=== PATIENT | female | born 1960 | race Caucasian/White ===

== ENCOUNTER 2024-08-09 13:26 | Outpatient (CLI) | payer MEDICARE, BC, SELFPAY ==
--- NOTE | 2024-08-09 13:30 | PE_ITS ---
[facility] [address] [facility] [address] Phone:?[phone] Fax:?[phone] Referring Physician Information: Onelia Guardado M.D. [address] [facility] [address] Phone:?[phone] Fax:?[phone] Patient:Tracy Delgado D.O.B:?1960 Sex:?Female Phone:?[phone] [facility] MRN:?[id number] Exam Date:?08/09/2024 EXAM: PET/CT SCAN MID-ORBITS TO PROXIMAL THIGHS CLINICAL INFORMATION: Right sided lung carcinoma; assess treatment response. COMPARISON:?None. TECHNICAL INFORMATION: Spiral acquisition of data was obtained from the mid orbits to the proximal thighs with reconstruction of 3.75 mm thick images at 3.[address] data was used for attenuation correction. PET scanning was performed through the same anatomic range 52 minutes following administration of 11.82 mCi of 18-FDG delivered intravenously. The patient's glucose at the time of the injection was 104 mg/dL. PET, CT and PET/CT fusion images are interpreted using a computer viewing workstation. SUV max liver 3.46; BMI normalization method. INTERPRETATION: Head and Neck: Physiologic intracranial uptake. Chest: Postoperative changes of the right chest. No lung nodule or FDG uptake of the right lung parenchyma. Minimal FDG uptake involving right pleural apical scarring, SUV max 3.89. 10 mm short axis diameter prevascular lymph node, image 69, SUV max 9.95. Additional 8mm left infrahilar node, image 87, SUV max 10.31. Abdomen, Pelvis and Proximal Thighs: No liver lesion. No biliary duct dilatation. 8 mm nodule left adrenal and image 131, SUV max 5.97. Probable 5 mm right adrenal FDG avid nodule nodule SUV max 3.73 image 131. 6 cm benign cyst right kidney. Atherosclerotic calcification abdominal aorta without aneurysm. No pathologic mesenteric or retroperitoneal adenopathy. No pelvic adenopathy, hernia, mass or fluid collection. MUSCULOSKELETAL: No focal skeletal lesions are identified. Degenerative thoracic and lumbar spine change. CONCLUSION: 1. Post surgical change right hemithorax. Right apical ill-defined pleural-based soft tissue opacity consistent with postop fibrosis, SUV max 3.9. No additional right or left lung parenchymal nodule. 2. 10 mm short axis diameter prevascular FDG avid lymph node, SUV max 9.5 and FDG avid 8 mm left infrahilar node SUV max 10.31. 8 mm left adrenal FDG avid nodule SUV max 5.97 and probable 5 mm right adrenal FDG avid nodule SUV max 3.73. 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 Electronically signed on 08/12/2024 12:05:00 PM by Yan Spivey M.D.
== END 2024-08-09 13:27 | disposition home or self-care (01) ==
PROVIDERS: Visit Provider Radiology Radiation Oncology
DX: C34.11 Malignant neoplasm of upper lobe, right bronchus or lung (principal); E27.9 Disorder of adrenal gland, unspecified
CPT/HCPCS: 78815; A9552

== ENCOUNTER 2024-11-29 15:44 | Outpatient (CLI) | payer MEDICARE, BC, SELFPAY | END 2024-11-29 15:45 | disposition home or self-care (01) | LOC: RAD 15:55 | PROVIDERS: Visit Provider Radiology Radiation Oncology | DX: C34.11 Malignant neoplasm of upper lobe, right bronchus or lung (principal); R91.8 Other nonspecific abnormal finding of lung field | CPT/HCPCS: 78815; A9552 ==

== ENCOUNTER 2025-02-21 10:15 | Outpatient (CLI) | payer MEDICARE, BC, SELFPAY ==
--- NOTE | 2025-02-21 10:30 | CRLHL7_ITS ---
For Patients: As a result of the Century Cures Act, medical imaging exams and procedure reports are released immediately into your electronic medical record. You may view this report before your referring provider. If you have questions, please contact your health care provider. INDICATION: MALIGNANT NEOPLASM OF UPPER LOBE, RIGHT BRONCHUS OF LUNG TECHNIQUE: CT chest without contrast. COMPARISON: Dating back to 12/10. FINDINGS: Lungs and Airways: Left upper lobectomy. Similar 6 millimeter left lower lobe indeterminate pulmonary nodule, axial image 60. Superior segment left lower lobe tree-in-bud nodular airspace opacities. A few additional scattered sub 6 millimeter indeterminate pulmonary nodules. Changes right upper lobectomy. Stable right apical subpleural thickening. No new mass or consolidation. No discrete local disease recurrence. No endoluminal lesion. Heart and Mediastinum: Stable thyroid. No axillary or supraclavicular lymphadenopathy. No mediastinal, hilar or retrocrural lymphadenopathy. Normal heart size. Normal caliber aorta. Atherosclerotic and coronary artery calcifications. Pleura: The pleural spaces are normal. Abdomen: Stable subcentimeter hypodensity within the right hepatic lobe. Left renal cyst. Bones and soft tissues: Chronic left breast calcifications and surgical clips. IMPRESSION: 1. No discrete worsening disease in the chest. 2. Stable 6 millimeter left lower lobe and atraumatic pulmonary nodule and additional scattered sub 6 millimeter indeterminate pulmonary nodules. Attention on follow-up exams. 3. Superior segment left lower lobe tree-in-bud nodular airspace opacities, potentially underlying aspiratory in origin. Please note that all CT scans at this facility use dose modulation, iterative reconstruction, and/or weight-based dosing when appropriate to reduce radiation dose to as low as reasonably achievable. Dictated by Velasquez Marie MD @ 02/23/2025 6:14:53 PM (Electronically Signed)
== END 2025-02-21 10:16 | disposition home or self-care (01) ==
PROVIDERS: Visit Provider Physician Assistant
DX: C34.11 Malignant neoplasm of upper lobe, right bronchus or lung (principal); R91.8 Other nonspecific abnormal finding of lung field
CPT/HCPCS: 71250

== ENCOUNTER 2025-07-05 10:30 | Outpatient (RCR) | payer MEDICARE, BC, SELFPAY ==
--- NOTE | 2025-06-11 16:46 | OT.OPODN ---
OT Outpatient Ortho Daily Note OT Outpatient Ortho Daily Note* Start: 06/25/24 12:35 Freq: Status: Active Protocol: Document 06/11/25 12:55 RILEY (Rec: 06/11/25 16:45 RILEY [id number]) E-signed By Magda Sorenson OTR/L, CLT Type of Note Type of Note Type of Note Daily Note,Recert/Progress Note Visit Number [id number] Comments Recert note completed 06/11/25 Insurance Information Insurance Blue Cross/Blue Shield,Medicare B Information Outpatient History/Precautions Current Condition/Medical Diagnosis Referring Provider Dr. Onelia Guardado Medical Diagnoses Malignant Neoplasm of Lung Upper Lobe or Bronchus Right , C34. 11 Treatment Diagnosis Muscle Weakness, M62.81 Lack of Coordination, R27.9 Date of Onset Chronic with symtoms worsening summer Other Precautions Patient reports being very sensitive to medications. Drug allergies listed in the chart, per patient no other known allergies (no latex allergy/product/topical creams). 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) Lumpectomy to L breast 11/11/2014 Re-lumpectomy and removal of sentinel node 12/19/2014 Patient completed 32 radiation treatments in 16 visits (December-February 2015) Right Upper lobectomy (06/28/2017) and chest wall resection with Chemo (Jul 2017) 12/01/2017 26 treatments of Radiation Removed Upper Left lobe of lung 08/24/2021 Spot found on R lung 02/09/2024 Radiation Treatments 05/07, 05/09, 05/11, 05/14 and last treatment on 05/16/24 Medical/Functional History Medical History Yes Reviewed Prior Level of Patient is retired, recently moved to [place] from [place] Function/Mobility in order to be closer to children/grandkids Social History Employment Status Retired Ortho Subjective Subjective Subjective 06/11/25: Patient anxious today, reports she didn't sleep well. Last week her and her spouse moved into their new home that was built in [place]. Patient very overwhelmed with the packing and unpacking. She stated Today is a horrible day for a progress note Pain Assessment Pain Pain No OT OP Daily Ortho Note/Assessment Therapeutic Exercise Therapeutic Exercise 45 Minutes (minutes) Therapeutic Exercise Began session today doing doing a 5 min warm up on the Comments NuStep machine using all 4 limbs, seat at 9, arms at 10 , (dropped the resistance level down to level 2 (was up to level 4) but patient isn't at full capacity today. Her average step per minute (SPM) today was 68 when her normal is 80. Then in the therapy gym worked with the TRX band for bilateral UE exercises, all 3x10 and then did triceps pulldowns with 7.5 lbs. Next, Therapist directed patient in serratus punches in supine and then switched positions to static standing into a large ball against the wall. Pilates magic [place] for push/ pulls single UE then chest press bilateral hand use. Worked on Pelvic control and core strengthening on the mat table in side lying and supine. 3x10 bridging with first 2 sets hands down at her side on the mat and 3rd set with arms raised. Single UE figure 8's in each hand while seated 3x10 while holding the green 1.1 lb medicine ball. Then used the therabands for rows, overhead press and tricep pull downs 3x10 medium resistance (red band). Total Occupational Therapy Time Occupational Therapy 45 Minutes Hand Pinch/Intelligence Officer Basic Strength Hand Pinch/Intelligence Officer Basic Strength Hand Pinch/Intelligence Officer Basic Left Hand,Right Hand Strength Left Hand Intelligence Officer Basic Strength 35 Position 1 in Elbow Flexion (lbs) Intelligence Officer Basic Strength 18 Position 2 in Elbow Extension (lbs) Lateral Pinch 9 Strength (lbs) Three Point Pinch ( 6 lbs) Tip Pinch Strength ( 5 lbs) Right Hand Intelligence Officer Basic Strength 48 Position 1 in Elbow Flexion (lbs) Intelligence Officer Basic Strength 45 Position 2 in Elbow Extension (lbs) Lateral Pinch 11 Strength (lbs) Three Point Pinch ( 7 lbs) Tip Pinch Strength ( 6 lbs) Comments Comments On 12/18/24: R business analyst ecommerce went from 45/43 lbs to 48/45 lbs, R lateral pinch up 1 lb L business analyst ecommerce went from 30/10 lbs to 35/18 lbs, L lateral pinch up 1 lb OT Objective Data Hand Hand Dominance Right OT Problems Problems Problems Decreased Strength,Decreased Dexterity,Decreased Coordination,Sensory Sensitivity,Lifting,Gripping, Pinching Problems Comments Numbness (neuropathy) in bilateral hands/digits ( chronic) Patient sometimes will wake up in the middle of the night with L UE ache/fatigue Patient is unable to put in her contacts, unable to hold open a book to read, struggles to type on the computer. Greatly struggles with buttons, zippers, lacing/shoe ties (fine motor) is getting daily assistance from her is was present at time of EVAL and very supportive. Patient was tearful at time of Eval stating I feel like a small child, I can't do basic things for myself Patient no longer drives. Other Problems Writing,Opening Containers,Dressing,Computer,Fasteners, Sleeping Patient Potential Good Assessment Assessment Assessment 06/11/25: Patient's respiration levels increased faster today than other sessions today, her HR and oxygen levels on RA were monitored throughout session and WNL but she required more frequent rest breaks than her usual. With patient attending and participating in skilled OT, patient is able to return to meaningful roles through physical, cognitive, mental and social interventions for greater quality of life. She is highly motivated and benefits greater from attending therapy sessions in the clinic. 12/22 goals in this POC have been met. Deficits include: fair muscle endurance (was poor at the SOC, so this is improving), decreased muscle strength, poor coordination ( UE tremors of bilateral hands, L worse than R) & poor proprioception. These deficits greatly impact ADLs/IADLs/leisure activities and quality of life (Examples: Patient is unable to put in her contacts, unable to hold open a book to read, struggles to type on the computer. Greatly struggles with buttons, zippers, lacing/shoe ties (fine motor) is getting daily assistance from her for ADL/ IADLs but needing less help than when she first began therapy. Occupational Therapy Treatment Plan - OP Potential Rehabilitation Good Potential Barriers Barriers to goal Patient has had extensive radiation and chemo attainment treatments Set Goals Goals Set with Yes Patient Goals Goals 1. Through activity participation in skilled therapy sessions, and consistency in performing a customized HEP, patient will improve capacity of tendons and muscles to manage load in order to have less pain with ADLs, work, leisure activities and IADLs. -progressing, continue 2. Patient will resume a 2:1 scapulohumeral rhythm in order to reach into the closet for clothing and upper kitchen cabinets with R and L UE w/o dropping items 9/ 10 trials. -GOAL MET 09/04/24 3. With patient attending therapy sessions 1-2x/week, therapist will use modalities & manual treatment allowing patient to have increased active movement ( without increased pain symptoms) when participating in leisure activities. -GOAL MET 12/18/24 4. Patient will increase L hand business analyst ecommerce strength from 10 lbs (in position 2) >30 lbs in order to return to everyday tasks w/o fear of dropping items out of her hand. -progressing, continue 5. Patient will increase/develop proprioceptive awareness and joint position sense. -progressing, continue 6. Pt will report improved quality of sleep waking as evident by waking up < 3x per night due to UE limb heaviness/ache in a given week. -GOAL MET 09/04/24 7. Patient will demonstrate stereognosis in left hand by identifying 10/10 functional objects without use of visual or auditory cues in order to retrain normalized sensory perception and hand function for dressing, bathing and home management tasks. -GOAL MET 06/11/25 8. With therapy intervention, patient will show improvement in more normalized tone, be able to inhibit primitive patterns of movement and facilitate automatic, voluntary reactions and subsequent normal movement patterns. -progressing, continue Target Date 12 weeks Treatment Plan Treatment Plan Evaluation,Joint Mobilization,Manual Therapy,Ultrasound ,Wound Care/Scar Management,Therapeutic Exercise, Therapeutic Activities,Self Care/Home Management,Technology Education Teacher Training,Education,Neuromuscular Reeducation Expected Frequency 1-2x Week Expected Duration 12 Occupational Therapy Billing Units Treatment Minutes Timed Treatment 45 Minutes Total Treatment 45 Minutes Billing Units Therapeutic Exercise 3 Certification Statement Certification Statement I Certify That: Therapy Services Provided,Therapy Plan Established, Therapy Plan Reviewed Recertification Information Recertification Information Initial 06/21/24 Certification Date Recertification 04/23/25 Start Date Recertification Due 07/24/25 Date Reasons to Continue 01/22 goals in POC have been met. Skilled Therapy Rehabilitation Good Potential Click To Default ' Per treatment plan Per treatment plan' Continued Plan of Per treatment plan Care and Interventions Provider Signature Yes Required Provider Signature POC & Medical Necessity Shows Agreement With Physician NPI Number Write NPI# Here Physician Comment/ Comment or Changes Change Physician Signature Please Sign/Date Here & Date Requested
== END 2025-08-16 23:59 | disposition home or self-care (01) ==
PROVIDERS: Visit Provider Radiology Radiation Oncology
DX: R13.10 Dysphagia, unspecified (principal); C34.11 Malignant neoplasm of upper lobe, right bronchus or lung; I82.622 Acute embolism and thrombosis of deep veins of left upper extremity; M62.81 Muscle weakness (generalized); R27.9 Unspecified lack of coordination; T50.995A Adverse effect of other drugs, medicaments and biological substances, initial encounter; Z51.89 Encounter for other specified aftercare
CPT/HCPCS: 92507; 92521; 97012; 97110; 97112; 97116; 97140; 97162; 97166; 97530; X5282

== ENCOUNTER 2025-07-11 12:52 | Emergency (ER) | payer MEDICARE, BC, SELFPAY ==
[2025-07-11 13:00] VITALS: BP 132/81; PULSE 110; RESP 22; TEMP 37.5; O2SAT 97; BMI 20.2
--- NOTE | 2025-07-11 13:47 | ED.GENADULT ---
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 Patient does see PT OT in [facility] full regularly, they notice a which she was more short of breath recently and increased weakness. She has had symptoms for over a week, she saw her primary care provider in [facility] with with they did some blood tests and a XR chest, symptoms persisted her primary told to come to the emergency department. She denies any fevers or chills, she had a mild cough today, she feels more exertionally short of breath. She denies any headache, she sometimes gets ear pain, she denies any dizziness or lightheadedness, she has been eating and drinking less, no urinary complaints or diarrhea, she denies any chest pain or abdominal pain. No recent falls, no tick bites. Patient gets very anxious, she usually takes some Xanax p.r.n.. Related Data Home Medications ?Medication ?Instructions ?Recorded ?Confirmed albuterol sulfate 90 mcg/actuation 2 puff inhalation Q4-6H PRN dyspnea 07/11/25 07/26/25 aerosol inhaler (Ventolin HFA) alprazolam 0.25 mg tablet 0.125 mg PO HS anxiety 07/11/25 07/26/25 fexofenadine 60 mg-pseudoephedrine 1 tab PO BID 07/11/25 07/26/25 ER 120 mg tablet,ext.release,12 hr (Allergy Relief-D (fexofenadine)) B-complex with vitamin C 1 tab PO DAILY 07/26/25 07/26/25 calcium 600 mg (as carbonate)-vit 2 tab PO DAILY 07/26/25 07/26/25 D3 20 mcg (800 unit) chewable tablet (Caltrate plus D) cefdinir 250 mg/5 mL oral 300 mg PO BID 07/26/25 07/26/25 suspension clarithromycin 250 mg tablet 500 mg PO DIRECTED PRN 07/26/25 07/26/25 doxycycline monohydrate 100 mg 100 mg PO BID 07/26/25 07/26/25 capsule meclizine 12.5 mg tablet 12.5 mg PO Q6H PRN 07/26/25 07/26/25 Previous Rx's ?Medication ?Instructions ?Recorded enoxaparin 60 mg/0.6 mL 60 mg (0.6 mL) subcut Q12H 14 days 07/27/25 subcutaneous syringe (Lovenox) #16.8 mL Allergies Allergy/AdvReac Type Severity Reaction Status Date / Time azithromycin (From Zithromax) Allergy Unknown Verified 07/26/25 14:01 cefaclor (From Ceclor) Allergy Unknown Verified 07/26/25 14:01 cephalexin (From Keflex) Allergy Unknown Verified 07/26/25 14:01 iodine Allergy Unknown Verified 07/26/25 14:01 levofloxacin (From Levaquin) Allergy Unknown Verified 07/26/25 14:01 moxifloxacin (From Avelox) Allergy Unknown Verified 07/26/25 14:01 Penicillins Allergy Unknown Verified 07/26/25 14:01 shellfish derived Allergy Unknown Verified 07/26/25 14:01 Sulfa (Sulfonamide Allergy Unknown Verified 07/26/25 14:01 Antibiotics) tetracycline Allergy Unknown Verified 07/26/25 14:01 Review of Systems Status of ROS: Reports: 10 or more systems reviewed and unremarkable except as noted in History and below PFSH PFS Medical History (Updated 08/04/25 @ 00:00 by Background Daemon) History of breast cancer ?Z85.3 - Personal history of malignant neoplasm of breast (ICD-10) Chronic anxiety ?F41.9 - Anxiety disorder, unspecified (ICD-10) Thalassemia minor ?D56.3 - Thalassemia minor (ICD-10) Anemia of chronic disease ?D63.8 - Anemia in other chronic diseases classified elsewhere (ICD-10) Lung cancer ?C34.90 - Malignant neoplasm of unspecified part of unspecified bronchus or lung (ICD-10) Deep venous thrombosis of left upper extremity ?I82.622 - Acute embolism and thrombosis of deep veins of left upper extremity (ICD-10) Surgical History (Updated 07/26/25 @ 19:41 by Kady Saavedra MD) History of lobectomy of lung ?Z90.2 - Acquired absence of lung [part of] (ICD-10) Hx of tonsillectomy ?Z90.89 - Acquired absence of other organs (ICD-10) S/P patent foramen ovale closure ?Z87.74 - Personal history of (corrected) congenital malformations of heart and circulatory system (ICD-10) Status post complete hysterectomy ?Z90.710 - Acquired absence of both cervix and uterus (ICD-10) S/P laparoscopic right hemicolectomy ?Z90.49 - Acquired absence of other specified parts of digestive tract (ICD-10) H/O lumpectomy ?Z98.890 - Other specified postprocedural states (ICD-10) Social History What is your current living situation?: I presently have a place to live Problems where you live: no known problems In the past 12 months, utilities in danger of being shut off: no In past 12 months, lack of transportation kept you from medical appts, meetings, work, or getting things needed for daily living: no In the past 12 mos, have been you worried that your food would run out before you had money to buy more?: never true In the past 12 mos, the food you bought just didn't last and you didn't have money to buy more?: never true Highest level of school completed/degree received: Master's degree Smoking Status: Former smoker Do you use any of these nicotine containing products: None How often do you have a drink containing alcohol: never How often do you have six or more drinks on one occasion: Never AUDIT-C Alcohol total score: 0 Non-prescribed substance use: denies use Caffeine: No How often does anyone, including family, friends and others, physically hurt you: never How often does anyone, including family, friends and others, insult or talk down to you: never How often does anyone, including family, friends and others, threaten you with harm: never How often does anyone, including family, friends and others, scream or curse at you: never service: No Exam Narrative: Exam Narrative: General: non toxic in appearance, HEENT: Tympanic membranes within normal limits bilaterally, oropharynx clear and moist Pupils equal round reactive to light, extraocular muscles intact Lungs: Clear to auscultation bilaterally Heart: Sinus tachycardia Her abdomen: Soft nontender, bowel sounds present Muscle skeletal: +5 strength lower extremities, upper extremities No joint swelling. Neuro: Alert awake and oriented x3 Const: Vital Signs, click to edit/add: Vital Signs - 24 hr 07/11/25 13:00 Temperature 99.5 F Pulse Rate [Pulse Oximeter] 110 H Respiratory Rate 22 Blood Pressure [Ri ght Upper Arm] 132/81 Pulse Oximetry 97 Oxygen Delivery Me thod Room Air Course Course ED Course: ED course: 1:30 PM: aidet performed. vitals show mild tachycardia, workup will include CBC, CK level, CRP, tick panel PCR, NT proBNP, troponin T point of care, magnesium, CMP, blood cultures, urinalysis showed receive 0.9 normal saline bolus, 15 mg IV Toradol, 0.25 mg IV Ativan. Differential includes anemia of chronic disease, CAD, pneumonia, UTI, heart failure, electrolyte abnormalities, tick-borne illness, sepsis, anxiety depression as well as other etiologies. Reevaluation(s) Time of Reevaluation #1: 15:53 Reevaluation #1: EKG showed a mild sinus tachycardia, rightward axis, possible anterior infarct age indeterminate, troponin 0.01, CBC showed no leukocytosis but chronic anemia related to her thalassemia, urinalysis was unremarkable, NT proBNP mildly elevated at 425, no comparisons, normal magnesium 1.9, tick borne disease PCR pending, blood cultures also pending, COVID flu RSV PCR negative, cuff had some metabolic panel showed normal electrolytes, renal function and LFTs, patient was given the above care and her symptoms improved she was ambulating better with no difficulty, did discuss her recent normal chest x-ray, will is going to obtain CT chest without IV contrast based on her allergy but she declined at this time, risks involved. Will plan to discharge home. She will follow up with her primary care provider as scheduled. Reasons to return given. Vital Signs Vital signs: Initial Vital Signs Respiratory Effort Normal 07/11/25 12:59 Respiratory Depth Normal 07/11/25 12:59 Respiratory Pattern Normal 07/11/25 12:59 Vital Signs Temperature 99.5 F 07/11/25 13:00 Pulse Rate 110 H 07/11/25 13:00 Respiratory Rate 22 07/11/25 13:00 Blood Pressure 132/81 07/11/25 13:00 Pulse Oximetry 97 07/11/25 13:00 Oxygen Delivery Method Room Air 07/11/25 13:00 Temperature 99.5 F 07/11/25 13:00 Pulse Rate 110 H 07/11/25 13:00 Respiratory Rate 22 07/11/25 13:00 Blood Pressure 132/81 07/11/25 13:00 Pulse Oximetry 97 07/11/25 13:00 Oxygen Delivery Method Room Air 07/11/25 13:00 Medical Decision Making Lab Data Labs: Lab Results 07/11/25 07/11/25 07/11/25 Range/Units 13:20 13:45 14:05 WBC 10.56 (4.50-11.00) K/uL RBC 6.14 H (4.00-5.20) m/uL Hgb 11.3 L (12.0-16.0) gm/dL Hct 36.3 (33.0-51.0) % MCV 59 L (80-100) fL MCH 18 L (26-34) pg MCHC 31 L (32-36) gm/dL RDW Coeff of Nahed 17.0 H (11.5-15.5) % Plt Count 333 (140-440) K/uL Neut % (Auto) 77.9 H (42.0-72.0) % Lymph % (Auto) 13.8 L (20-44) % [place] % (Auto) 5.6 (0.0-11.0) % Eos % (Auto) 1.9 (0.0-7.0) % Baso % (Auto) 0.3 (0.0-3.0) % Neut # (Auto) 8.20 H (1.7-7.0) K/uL Lymph # (Auto) 1.50 (0.90-2.90) K/uL [place] # (Auto) 0.60 (0.00-0.90) K/UL Eos # (Auto) 0.20 (0.00-0.50) K/uL Baso # (Auto) 0.03 (0.00-0.30) K/uL Abs Immat Gran (auto) 0.05 (0.00-0.30) K/uL Imm/Tot Granulo (auto) 0.5 % Diff Slide Review Acceptable Review (Acceptable) Sodium 136 (135-149) mmol/L Potassium 4.5 (3.6-5.1) mmol/L Chloride 104 (96-114) mmol/L Carbon Dioxide 20 (20-32) mmol/L Anion Gap 12 (7-15) mEq/L BUN 14 (7-30) mg/dL Creatinine 1.0 (0.5-1.5) mg/dL Estimated Creat Clear 49.53 Estimated GFR 62 ml/min Glucose 116 H (60-115) mg/dL Calcium 9.7 (8.4-10.6) mg/dL Magnesium 1.9 (1.5-2.6) mg/dL Total Bilirubin 0.6 (0.1-1.5) mg/dL AST 30 (12-35) U/L ALT 14 (4-35) U/L Alkaline Phosphatase 121 (40-150) U/L C-Reactive Protein 1.8 H (0.5-1.0) mg/dL NT-Pro-B Natriuret Pep 425 H (See Note) pg/mL Total Protein 8.5 H (6.0-8.3) g/dL Albumin 4.4 (3.3-5.0) g/dL Urine Color Yellow (Yellow) Urine Appearance Clear (Clear) Urine pH 6.0 (5.0-8.5) Ur Specific [place] 1.015 (1.000-1.030) Urine Protein Negative (Negative) Urine Glucose (UA) Negative (Negative) Urine Ketones Trace A (Negative) Urine Blood Negative (Negative) Urine Nitrite Negative (Negative) Urine Bilirubin Negative (Negative) Urine Urobilinogen 0.2 (0.2-1.0) Ur Leukocyte Esterase Negative (Negative) A. phagocytophilum DNA Not Detected Babesia Species (PCR) Not Detected SARS-CoV-2 (PCR) Negative SARS-CoV-2 (Negative) E.ewingii/canis DNA PCR Not Detected E. muris-like DNA (PCR) Not Detected Influenza Type A (PCR) Negative PCR FLU A (Negative) Influenza Type B (PCR) Negative PCR FLU B (Negative) RSV (PCR) Negative PCR RSV (Negative) Babesia microti (PCR) Not Detected E. chaffeensis (PCR) Not Detected POC Troponin I 0.01 (0.01-0.04) ng/ml Discharge Plan Discharge Clinical Impression: Myalgia, Generalized weakness, Dyspnea Patient Disposition: Home, Self-Care Condition: Improved Instructions: Weakness (ED), Musculoskeletal Pain (ED) Additional Instructions: To follow-up with primary care provider next Tuesday as scheduled in [place], follow up as scheduled with imaging here in [place] and then follow up with Dr. Guardado, return if worsening symptoms. Activity Level: No Restrictions Prescriptions: No Action alprazolam 0.25 mg tablet 0.125 mg PO HS Rx Instructions: plus additional 1/2 tab as needed on rare occasions albuterol sulfate [Ventolin HFA] 90 mcg/actuation HFA aerosol inhaler 2 puff inhalation Q4-6H PRN (Reason: dyspnea) fexofenadine-pseudoephedrine [Allergy Relief-D(fexofenadine)] 60-120 mg tablet extended release 12 hr 1 tab PO BID B-complex with vitamin C Tablet 1 tab PO DAILY Caltrate 600 plus D 600 mg-20 mcg (800 unit) tablet,chewable 2 tab PO DAILY doxycycline monohydrate 100 mg capsule 100 mg PO BID cefdinir 250 mg/5 mL suspension for reconstitution 300 mg PO BID meclizine 12.5 mg tablet 12.5 mg PO Q6H PRN Rx Instructions: DIZZINESS clarithromycin 250 mg tablet 500 mg PO DIRECTED PRN Rx Instructions: TAKE 500 MG PRIOR TO DENTAL APPOINTMENTS enoxaparin [Lovenox] 60 mg/0.6 mL syringe 60 mg subcut Q12H 14 Days Qty: 16.8 2RF Follow Up/Referrals: Provider,Not a Local [Primary Care Provider, Family Practice] Stand Alone Forms: MyHealth Info Instructions
[2025-07-11 14:07] LABS: PCR FLU A Negative PCR FLU A (Negative); PCR FLU B Negative PCR FLU B (Negative); PCR RSV Negative PCR RSV (Negative); SARS PCR* Negative SARS-CoV-2 (Negative)
[2025-07-11 14:22] LABS: Hematocrit* 36.3 % (33.0-51.0); Hemoglobin* 11.3 gm/dL (12.0-16.0); Immature Granulocytes Abs Auto 0.05 K/uL (0.00-0.30); Immature Granulocytes Pct Auto 0.5 %; Mean Corpuscular HGB Conc 31 gm/dL (32-36); Mean Corpuscular Hemoglobin 18 pg (26-34); Mean Corpuscular Volume 59 fL (80-100); RDW Coefficient of Variation % 17.0 % (11.5-15.5); Red Blood Count* 6.14 m/uL (4.00-5.20); White Blood Count* 10.56 K/uL (4.50-11.00)
[2025-07-11 14:24] LABS: Troponin, Point-of-Care* 0.01 ng/ml (0.01-0.04)
[2025-07-11 14:29] LABS: Lymphocytes Absolute Auto 1.50 K/uL (0.90-2.90); Slide Review Reflex Yes
[2025-07-11 14:30] LABS: Albumin* 4.4 g/dL (3.3-5.0); Chloride* 104 mmol/L (96-114); Sodium* 136 mmol/L (135-149)
[2025-07-11 14:31] LABS: Potassium* 4.5 mmol/L (3.6-5.1)
[2025-07-11 14:33] LABS: Blood Urea Nitrogen* 14 mg/dL (7-30); Creatinine* 1.0 mg/dL (0.5-1.5); Est. Creatinine Clearance* 49.53; Estimated Glomerular Filt Rate 62 ml/min
[2025-07-11 14:34] LABS: Alanine Aminotransferase* 14 U/L (4-35); Alkaline Phosphatase* 121 U/L (40-150); Anion Gap 12 mEq/L (7-15); Aspartate Amino Transferase* 30 U/L (12-35); Bilirubin Total* 0.6 mg/dL (0.1-1.5); Calcium* 9.7 mg/dL (8.4-10.6); Carbon Dioxide* 20 mmol/L (20-32); Glucose* 116 mg/dL (60-115); Total Protein* 8.5 g/dL (6.0-8.3)
[2025-07-11 14:44] LABS: NT Pro B Type NatriureticPept* 425 pg/mL (See Note)
[2025-07-11 14:56] LABS: Slide Review Acceptable Review (Acceptable)
[2025-07-11 15:08] LABS: Appearance Urine Clear (Clear)
[2025-07-14 01:22] LABS: Anaplasma phagocyt PCR Not Detected
== END 2025-07-11 16:12 | disposition home or self-care (01) ==
PROVIDERS: Emergency Provider Student in an Organized Health Care Education/Training Program
DX: M79.10 Myalgia, unspecified site (principal); R53.1 Weakness; R06.00 Dyspnea, unspecified
CPT/HCPCS: 36415; 80053; 81003; 83735; 83880; 84484; 85025; 86140; 87040; 87468; 87469; 87484; 87631; 87798; 93005; 99283; 99284

== ENCOUNTER 2025-07-26 12:53 | Inpatient (IN) | payer MEDICARE, BC, SELFPAY ==
[2025-07-26] VITALS (8 sets, daily range): BP systolic 112–140; BP diastolic 62–91; PULSE 97–122; RESP 18–26; TEMP 36.7–37.7; O2SAT 96–100; BMI 21.0
--- NOTE | 2025-07-26 13:22 | CRLHL7_ITS ---
For Patients: As a result of the Century Cures Act, medical imaging exams and procedure reports are released immediately into your electronic medical record. You may view this report before your referring provider. If you have questions, please contact your health care provider. INDICATION: Left arm swelling. TECHNIQUE: Ultrasound venous duplex upper left extremity. Compression venous exam was performed using alvarez-scale, color Doppler, and spectral Doppler imaging COMPARISON: None. FINDINGS: Heterogeneous noncompressible nonocclusive material consistent with venous thrombosis in the left internal jugular vein. Heterogeneous thrombus is present throughout the left subclavian, axillary and brachial veins. Diffuse thrombus is also demonstrated in the left basilic vein. Contralateral right internal jugular vein is patent. IMPRESSION: 1. Extensive left upper extremity deep venous thrombosis, with partial/nonocclusive thrombus in the left internal jugular vein. 2. Extensive left basilic vein thrombosis. Discussed with Dr. Maxwell by telephone at 2:21 p.m. on 07/26/2025. Dictated by Shawn Mak MD @ 07/26/2025 2:21:45 PM Dictated by: Shawn Mak MD @ 07/26/2025 14:22:03 (Electronically Signed)
--- NOTE | 2025-07-26 14:33 | ED.GENADULT ---
HPI - General Adult General Chief complaint: Extremity Pain/Injury, Upper Stated complaint: L arm swelling Time Seen by Provider: 07/26/25 13:03 Source: patient Mode of arrival: ambulatory Limitations: no limitations History of Present Illness HPI narrative: 65-year-old female with a history of breast cancer and ductal lung carcinoma status post lumpectomy and chest wall resection, status post chemo and radiation-cancer free for approximately 1 year presenting to the emergency department with swelling of the upper left extremity that was noticed last evening. Patient does not feel short of breath. She has no recent illness. She has no cough. No fevers or chills. No trauma to the upper extremity. Patient states that she has significant anxiety and her pulse does tend to go up when she comes to the doctor. Related Data Home Medications ?Medication ?Instructions ?Recorded ?Confirmed B-complex with vitamin C ml .Route 07/11/25 albuterol sulfate 90 mcg/actuation 2 puff inhalation Q4-6H PRN dyspnea 07/11/25 07/11/25 aerosol inhaler (Ventolin HFA) alprazolam 0.25 mg tablet 0.25 mg PO Q12H PRN anxiety 07/11/25 07/11/25 calcium 600 mg (as carbonate)-vit 1 tab PO DAILY 07/11/25 07/11/25 D3 20 mcg (800 unit) chewable tablet (Caltrate plus D) fexofenadine 60 mg-pseudoephedrine 1 tab PO BID 07/11/25 07/11/25 ER 120 mg tablet,ext.release,12 hr (Allergy Relief-D (fexofenadine)) Allergies Allergy/AdvReac Type Severity Reaction Status Date / Time azithromycin (From Zithromax) Allergy Unknown Verified 07/26/25 14:01 cefaclor (From Ceclor) Allergy Unknown Verified 07/26/25 14:01 cephalexin (From Keflex) Allergy Unknown Verified 07/26/25 14:01 iodine Allergy Unknown Verified 07/26/25 14:01 levofloxacin (From Levaquin) Allergy Unknown Verified 07/26/25 14:01 moxifloxacin (From Avelox) Allergy Unknown Verified 07/26/25 14:01 Penicillins Allergy Unknown Verified 07/26/25 14:01 shellfish derived Allergy Unknown Verified 07/26/25 14:01 Sulfa (Sulfonamide Allergy Unknown Verified 07/26/25 14:01 Antibiotics) tetracycline Allergy Unknown Verified 07/26/25 14:01 Review of Systems Status of ROS: Reports: 10 or more systems reviewed and unremarkable except as noted in History and below [facility] Social History Smoking Status: Never smoker How often do you have a drink containing alcohol: never How often do you have six or more drinks on one occasion: Never AUDIT-C Alcohol total score: 0 Non-prescribed substance use: denies use Exam Narrative: Exam Narrative: Well-nourished well-developed patient in no acute distress. Alert and oriented. Her speech is difficult to understand-this is not new. HEENT: Normocephalic atraumatic. Pupils are equally round reactive to light. Extraocular muscles are intact. Conjunctivae are moist without any icterus noted. Moist mucous membranes. Cardiovascular: Heart is regular rate and rhythm. Lungs: Clear to auscultation bilaterally. Extremities: Bilateral lower extremities are without edema. Right upper extremity appears normal. Left upper extremity is visibly swollen from the shoulder all the way down to the fingertips. She has a normal radial pulse. There is no erythema noted. Skin: Well perfused. Const: Vital Signs, click to edit/add: Vital Signs - 24 hr 07/26/25 13:00 07/26/25 14:15 07/26/25 15:10 Temperature 99.9 F H 98.0 F Pulse Rate [Left P ulse Oximeter] 122 H 99 106 H Respiratory Rate 26 H 24 Blood Pressure [Ri ght Upper Arm] 112/62 124/80 Pulse Oximetry 98 98 Oxygen Delivery Me thod Room Air Room Air Course Course ED Course: Right upper extremity ultrasound shows extensive DVTs. I did speak to vascular, Dr. Noland, at [facility] who recommended 24 hours of heparin then switching to Eliquis. She also recommended send out labs: DRVVT, anti phospholipid antibody IgG and IgM, and B2 glycoprotein antibody IgG and IgM - if these are positive she may not be a candidate for Eliquis. She recommended pain control and making sure that her swelling is coming down prior to discharge. She also recommended follow-up with Oncology to make sure that her cancer has not return and with the thrombophilia clinic as patient has a history of thalassemia. Vital Signs Vital signs: Initial Vital Signs Temperature 99.9 F H 07/26/25 13:00 Temperature Source Temporal Artery Scan 07/26/25 13:00 Pulse Rate 122 H 07/26/25 13:00 Respiratory Rate 26 H 07/26/25 13:00 Blood Pressure 112/62 07/26/25 13:00 Blood Pressure Mean 78 07/26/25 13:00 Blood Pressure Position Sitting 07/26/25 13:00 Pulse Oximetry 98 07/26/25 13:00 Oxygen Delivery Method Room Air 07/26/25 13:00 Vital Signs Temperature 99.9 F H 07/26/25 13:00 Pulse Rate 122 H 07/26/25 13:00 Respiratory Rate 26 H 07/26/25 13:00 Blood Pressure 112/62 07/26/25 13:00 Pulse Oximetry 98 07/26/25 13:00 Oxygen Delivery Method Room Air 07/26/25 13:00 Temperature 98.0 F 07/26/25 15:10 Pulse Rate 106 H 07/26/25 15:10 Respiratory Rate 24 07/26/25 15:10 Blood Pressure 124/80 07/26/25 15:10 Pulse Oximetry 98 07/26/25 15:10 Oxygen Delivery Method Room Air 07/26/25 15:10 Medical Decision Making MDM Narrative Medical decision making narrative: 65-year-old female with extensive DVT. Plan per above. Imaging Data Venous US: Attestation: I have reviewed the pertinent imaging results. Radiologist's impression: TECHNIQUE: Ultrasound venous duplex upper left extremity. Compression venous exam was performed using alvarez-scale, color Doppler, and spectral Doppler imaging COMPARISON: None. FINDINGS: Heterogeneous noncompressible nonocclusive material consistent with venous thrombosis in the left internal jugular vein. Heterogeneous thrombus is present throughout the left subclavian, axillary and brachial veins. Diffuse thrombus is also demonstrated in the left basilic vein. Contralateral right internal jugular vein is patent. IMPRESSION: 1. Extensive left upper extremity deep venous thrombosis, with partial/nonocclusive thrombus in the left internal jugular vein. 2. Extensive left basilic vein thrombosis. Discharge Plan Discharge Clinical Impression: DVT (deep venous thrombosis) Patient Disposition: Admitted As Inpatient Condition: Stable
[2025-07-26 16:34] LABS: Hematocrit* 27.5 % (33.0-51.0); Hemoglobin* 8.8 gm/dL (12.0-16.0); Immature Granulocytes Pct Auto 2.0 %; Mean Corpuscular HGB Conc 32 gm/dL (32-36); Mean Corpuscular Hemoglobin 18 pg (26-34); Mean Corpuscular Volume 56 fL (80-100); RDW Coefficient of Variation % 14.8 % (11.5-15.5); Red Blood Count* 4.93 m/uL (4.00-5.20); White Blood Count* 13.09 K/uL (4.50-11.00)
[2025-07-26 16:36] LABS: Immature Granulocytes Abs Auto 0.30 K/uL (0.00-0.30); Lymphocytes Absolute Auto 2.00 K/uL (0.90-2.90); Slide Review Reflex No
[2025-07-26] MEDS: HEPARIN 5,000 UNIT/0.5 ML INJ 4600 UNIT IVP (16:45)
[2025-07-26] MEDS: HEPARIN 25,000 UNIT/500 ML BAG 21 UNIT IV (16:51)
[2025-07-26 16:59] LABS: Chloride* 100 mmol/L (96-114); Potassium* 4.1 mmol/L (3.6-5.1); Sodium* 133 mmol/L (135-149)
[2025-07-26 17:02] LABS: Anion Gap 6 mEq/L (7-15); Blood Urea Nitrogen* 15 mg/dL (7-30); Calcium* 8.6 mg/dL (8.4-10.6); Carbon Dioxide* 27 mmol/L (20-32); Creatinine* 0.6 mg/dL (0.5-1.5); Est. Creatinine Clearance* 49.80; Estimated Glomerular Filt Rate 99 ml/min; Glucose* 117 mg/dL (60-115); INR 1.31 (0.91-1.10); Prothrombin Time 17.2 Seconds
--- NOTE | 2025-07-26 17:11 | PM.IMHP1 ---
Assessment and Plan Assessment and plan (1) Deep venous thrombosis of left upper extremity: Problem comment: -Acute in the last 48 hours since leaving ER at [place], no previous VTE hx. On Heparin gtt protocol. -Extensive left upper extremity deep venous thrombosis, with partial/nonocclusive thrombus in the left internal jugular vein. -ED discussed with vascular; instructed on heparin for 24 hours --> Eliquis. Send out labs recommended (will let day team who best to order these) and f/u with heme/thrombophillia clinic (hx of thalasemia), oncology (obstructive pathology?) (Dr. Noland, at [facility] who recommended 24 hours of heparin then switching to Eliquis. She also recommended send out labs: DRVVT, anti phospholipid antibody IgG and IgM, and B2 glycoprotein antibody IgG and IgM - if these are positive she may not be a candidate for Eliquis) Status: Acute (2) Left lower lobe pneumonia: Problem comment: -seen in [place] on 07/24 started on doxy/cefdinir (CT abd/pelvis showed developing LLL pna and trace pleural effusion) -started Rocephin at admission and continued doxy -nebs -imaging on admission showed a multifocal opacity in the LLL with a new effusion. -will have RT consult Status: Acute (3) Lung cancer: Problem comment: -New DVT in the left UE. New hypodense mass in liver, new soft tissue mass on the mid back. -History of 3 separate primaries? RUL, EWELINA, RLL. medical records not available. Right UL included chest wall reconstruction with mesh and rib removal -Currently followed by Rad Onc [facility] (here in [place]) Status: Acute (4) Anemia of chronic disease: Problem comment: -trend hemoglobin Status: Acute (5) Thalassemia minor: Status: Acute (6) Soft tissue mass: Problem comment: midback, superficial, right of midline. u/s done with [facility], biopsy planned. Status: Acute (7) Hypodense mass of right lobe of liver: Problem comment: New hypodensity in the right hepatic lobe by CT on 07/24/25 Status: Acute (8) Chronic anxiety: Problem comment: xanax prn Status: Acute (9) History of breast cancer: Problem comment: 2014. Microinvasive ductal carcinoma stage 1. Status: Acute Hospitalist- H&P: HPI History of Present Illness Date Seen: 07/26/25 Chief complaint: L arm swelling Narrative: ADMISSION HISTORY AND PHYSICAL - HOSPITALIST Chief Complaint: swelling/redness/pain in the left arm HPI: Lena Antony is a 65-year-old white female with an extensive medical history who presents to our emergency room today with her , Sean. Sean this most of the talking. He states over the last 48 hours since being discharged from the ED in [place] she has had progressive right arm redness and swelling. Things seemed worse today and even by the our so he brought her to our emergency room. Since about July 11 She and has been feeling headaches, bone pain, with intermittent abdominal pain. She did have an ER visit with us on the , and then with [facility] on the 24 of July. At the [facility] visit she was diagnosed with a left lower lobe pneumonia by CT abdomen pelvis. No chest imaging was done. She was started on oral cefdinir and doxycycline (on these for the last ttwo days). She has multiple allergies. She states the headache and bone pain seem improved. It is the red swollen left arm that brought her in tonight. Notably she has a history of 3 different primary lung cancers. I only have snippets of medical records to rely on. The patient brings her own notes as well. She has had a right upper lobe lobectomy with chest wall reconstruction in 2016. She is status post radiation and chemo as well. She had a new primary left upper lobe cancer that resulted in a left lobectomy and radiation in 2020. And in the last 18 months she has had a new right lower lobe cancer. This had been treated with targeted radiation with [facility]. In addition she has also had breast cancer in 2014. The 1st 2 lung cancers and breast cancers were treated in [facility]. When the 3rd lung cancer was diagnosed they were referred to the [facility]. The ultimately moved to [facility] and had been getting care both in the [facility] and [place]. She does have a primary in [place]. ER COURSE: Venous duplex, labs, discussion with vascular in [place]. Started heparin gtt per their recommendations. CODE STATUS: FULL CODE PCP: Ruth Regan in [place] [facility] RAD [facility] Dr. Hood (oncology lead in [place]) EMERGENCY CONTACT PLAN: Sean Son Nicho both bedside I've updated the PFSH, medications and allergies in the [facility] tabs. INVESTIGATIONS: LABS/MICRO/ECG/IMAGING Blood pressure 140/91. Pulse 114. Resp is 20. Temp afebrile. O2 sat 97%. Weight 57 kilos. BMI 21. Labs reveal her white blood cell count was 5.5 two days prior to admission ([place] ED) now it is 13.09. 15% lymphocytes. Only 70% neutrophils - small bumps in both her monocytes and eosinophils. Her hemoglobin has dropped to 8.8, 2 days prior to admission it was 9.8. In our ED it was 11.3 which is about her baseline, she takes iron twice weekly. She has not been taking it recently. INR tonight 1.31 Sodium 133, normal 2 days prior to admission. Kidney function and liver enzymes seem to be normal. There was a bump in her alk-phos 2 days ago. I will recheck this. Her CRP couple of weeks ago was barely elevated and now according to [place] it was markedly elevated 2 days prior to admission Venous Duplex tonight in the ED 1. Extensive left upper extremity deep venous thrombosis, with partial/nonocclusive thrombus in the left internal jugular vein. 2. Extensive left basilic vein thrombosis. CT Chest non-con Patchy multifocal opacity in the left lower lung with a new effusion most suspicious for pneumonia. Follow-up CT in 3 months recommended, or sooner if per oncology. This noncontrast examination can not assess for pulmonary embolism. CT abdomen/pelvis w/o contrast in ED @ [place] (no CXR or CT Chest done) 07/23/2025 8:59 PM CDT? 1. Developing left lower lobe pneumonia with associated trace pleural effusion. 2. New hypodensity in the right hepatic lobe which is indeterminate. A multiphasic CT or MRI would be helpful for further evaluation on a nonemergent basis. recent u/s of her back superficial soft tissue: 07/16/25 Focused sonographic evaluation was performed in the area of concern in the mid back just right of midline, demonstrating a 1.1 x 1.3 x 0.8 cm heterogeneous hypoechoic structure in the subcutaneous tissues with poorly defined margins, some posterior acoustic enhancement and no internal color Doppler flow. Findings are nonspecific, could represent a complex epidermal inclusion cyst although an indolent neoplasm is not excluded. CXR done 07/09 IMPRESSION: 1. Post right thoracotomy inferior lingular scarring. 2. No acute infiltrate. REVIEW OF SYSTEMS: 12-point ROS completed with patient and negative unless otherwise stated in HPI or below. PHYSICAL EXAM: CONSTITUTIONAL: looks chronically ill and older than stated age. GENERAL: tremor in the left hand; speech impediment. VITAL SIGNS: see record. HEENT: Sclerae are anicteric. No petechiae. CARDIAC: rhythm is regular. There is no S3 or rub. No harsh murmurs. Extremities show trace edema with symmetrical pulses. PULM: wheezes, exp, in the left lung chung. mildly tachypneic. NEURO: Speech is difficult to understand. A brief neurologic exam is negative. SKIN: No rashes, petechiae, concerning changes - small soft nodular mass along the right side of mid back. PSYCHIATRIC: Euthymic. ADMIT TO MEDSURG: FLOOR CARE DVT: Heparin gtt --> eliquis GI: PO intake Time spent: Today I spent 75 minutes seeing the patient, discussing the patient with ER staff, reviewing Expanse and EPIC notes/diagnostics, discussing the care plan with our care time that includes social work, PT/OT, pharmacy, RT, fci and documenting my impressions and plan in the medical record. MEDICAL NECESSITY FOR HOSPITALIZATION Anticipated midnights in the hospital: 2 Admitting diagnosis: CAP and DVT Risk of morbidity and mortality: high Acuity is characterized as high and reflected in: extensive clot burden, failed out patient antibiotics for CAP, extensive cancer history and lung reduction surgeries. This patient will require hospital services as outlined in the assessment and plan in order to stabilize and be safely discharged to a lower level of care. Because of the risk and acuity as described above, this patient cannot be managed at a lower level of care. LENGTH OF STAY: 2 IP ? Anticipated LOS>2 midnights due to acuity of clinical presentation requiring inpatient level of care [facility] Medical History (Updated 07/26/25 @ 21:42 by Kady Saavedra MD) History of breast cancer ?Z85.3 - Personal history of malignant neoplasm of breast (ICD-10) Chronic anxiety ?F41.9 - Anxiety disorder, unspecified (ICD-10) Thalassemia minor ?D56.3 - Thalassemia minor (ICD-10) Anemia of chronic disease ?D63.8 - Anemia in other chronic diseases classified elsewhere (ICD-10) Lung cancer ?C34.90 - Malignant neoplasm of unspecified part of unspecified bronchus or lung (ICD-10) Deep venous thrombosis of left upper extremity ?I82.622 - Acute embolism and thrombosis of deep veins of left upper extremity (ICD-10) Surgical History (Updated 07/26/25 @ 19:41 by Kady Saavedra MD) History of lobectomy of lung ?Z90.2 - Acquired absence of lung [part of] (ICD-10) Hx of tonsillectomy ?Z90.89 - Acquired absence of other organs (ICD-10) S/P patent foramen ovale closure ?Z87.74 - Personal history of (corrected) congenital malformations of heart and circulatory system (ICD-10) Status post complete hysterectomy ?Z90.710 - Acquired absence of both cervix and uterus (ICD-10) S/P laparoscopic right hemicolectomy ?Z90.49 - Acquired absence of other specified parts of digestive tract (ICD-10) H/O lumpectomy ?Z98.890 - Other specified postprocedural states (ICD-10) Social History What is your current living situation?: I presently have a place to live Problems where you live: no known problems In the past 12 months, utilities in danger of being shut off: no In past 12 months, lack of transportation kept you from medical appts, meetings, work, or getting things needed for daily living: no In the past 12 mos, have been you worried that your food would run out before you had money to buy more?: never true In the past 12 mos, the food you bought just didn't last and you didn't have money to buy more?: never true Highest level of school completed/degree received: Master's degree Smoking Status: Former smoker Do you use any of these nicotine containing products: None How often do you have a drink containing alcohol: never How often do you have six or more drinks on one occasion: Never AUDIT-C Alcohol total score: 0 Non-prescribed substance use: denies use Caffeine: No How often does anyone, including family, friends and others, physically hurt you: never How often does anyone, including family, friends and others, insult or talk down to you: never How often does anyone, including family, friends and others, threaten you with harm: never How often does anyone, including family, friends and others, scream or curse at you: never service: No Meds Home Medications and Allergies Home Medications ?Medication ?Instructions ?Recorded ?Confirmed ?Type albuterol sulfate 90 mcg/actuation 2 puff inhalation Q4-6H PRN dyspnea 07/11/25 07/26/25 History aerosol inhaler (Ventolin HFA) alprazolam 0.25 mg tablet 0.125 mg PO HS anxiety 07/11/25 07/26/25 History fexofenadine 60 mg-pseudoephedrine 1 tab PO BID 07/11/25 07/26/25 History ER 120 mg tablet,ext.release,12 hr (Allergy Relief-D (fexofenadine)) B-complex with vitamin C 1 tab PO DAILY 07/26/25 07/26/25 History calcium 600 mg (as carbonate)-vit 2 tab PO DAILY 07/26/25 07/26/25 History D3 20 mcg (800 unit) chewable tablet (Caltrate plus D) cefdinir 250 mg/5 mL oral 300 mg PO BID 07/26/25 07/26/25 History suspension clarithromycin 250 mg tablet 500 mg PO DIRECTED PRN 07/26/25 07/26/25 History doxycycline monohydrate 100 mg 100 mg PO BID 07/26/25 07/26/25 History capsule meclizine 12.5 mg tablet 12.5 mg PO Q6H PRN 07/26/25 07/26/25 History Allergies Allergy/AdvReac Type Severity Reaction Status Date / Time azithromycin (From Zithromax) Allergy Unknown Verified 07/26/25 14:01 cefaclor (From Ceclor) Allergy Unknown Verified 07/26/25 14:01 cephalexin (From Keflex) Allergy Unknown Verified 07/26/25 14:01 iodine Allergy Unknown Verified 07/26/25 14:01 levofloxacin (From Levaquin) Allergy Unknown Verified 07/26/25 14:01 moxifloxacin (From Avelox) Allergy Unknown Verified 07/26/25 14:01 Penicillins Allergy Unknown Verified 07/26/25 14:01 shellfish derived Allergy Unknown Verified 07/26/25 14:01 Sulfa (Sulfonamide Allergy Unknown Verified 07/26/25 14:01 Antibiotics) tetracycline Allergy Unknown Verified 07/26/25 14:01 Exam Const: Vital Signs, click to edit/add: Vital Signs - 24 hr 07/26/25 13:00 07/26/25 14:15 07/26/25 15:10 Temperature 99.9 F H 98.0 F Pulse Rate [Left P ulse Oximeter] 122 H 99 106 H Respiratory Rate 26 H 24 Blood Pressure [Ri ght Upper Arm] 112/62 124/80 Pulse Oximetry 98 98 Oxygen Delivery Me thod Room Air Room Air Hospitalist - H&P: Result Labs Labs: Short CBC 07/26/25 Range/Units 16:18 WBC 13.09 H (4.50-11.00) K/uL Hgb 8.8 L (12.0-16.0) gm/dL Hct 27.5 L (33.0-51.0) % Plt Count 337 (140-440) K/uL BMP 07/26/25 16:18 Sodium 133 L Potassium 4.1 Chloride 100 Carbon Dioxide 27 BUN 15 Creatinine 0.6 Glucose 117 H Calcium 8.6
[2025-07-26 18:59] LABS: Immature Reticulocyte Fraction 13.9 % (3.0-15.9); Reticulocyte Hemoglobin Equivi 15.3 pg (29.0-35.0); Reticulocytes Absolute 0.04 # (0.03-0.08)
[2025-07-26 19:07] LABS: Albumin* 3.0 g/dL (3.3-5.0)
--- NOTE | 2025-07-26 19:07 | PC.NURSE ---
Pt arrived to unit at 1715. at bedside. Pt is A&Ox4, anxious. VSS. Denies pain. Pt is SOB at rest. Pt's heparin drip was running at 21mls/hr when she arrived on the unit; continued rate was verified with second RN. Pt is tolerating oral intake and resting well at this time.
[2025-07-26 19:10] LABS: Alanine Aminotransferase* 21 U/L (4-35); Aspartate Amino Transferase* 40 U/L (12-35); Iron* 20 ug/dL (37-170)
[2025-07-26 19:11] LABS: Alkaline Phosphatase* 128 U/L (40-150); Bilirubin Direct* 0.3 mg/dL (0.0-0.5); Bilirubin Total* 0.3 mg/dL (0.1-1.5); Total Protein* 6.4 g/dL (6.0-8.3)
[2025-07-26 19:19] LABS: Percent Iron Saturation 9 % (20-50); Total Iron Binding Capacity 215 ug/dL (265-497)
--- NOTE | 2025-07-26 19:57 | CRLHL7_ITS ---
For Patients: As a result of the Century Cures Act, medical imaging exams and procedure reports are released immediately into your electronic medical record. You may view this report before your referring provider. If you have questions, please contact your health care provider. Indication: DVT found on ultrasound, lung cancer, breast cancer Technique: Noncontrast CT of the chest with multiplanar reformats. Comparison: CT chest performed 02/21/2025 Findings: Lungs: Patchy multifocal opacity in the left lung base. New small left effusion. Posttreatment changes to the right upper lung again noted. Mediastinum: No acute abnormality appreciated. Calcified coronary arterial and aortic atherosclerosis. Lymph nodes: Shotty nodes. Upper abdomen: No acute abnormality appreciated. Soft tissues: Postsurgical changes. Stranding surrounding the vasculature of the left upper chest compatible with known DVT. Bones: Postsurgical changes. No acute abnormality appreciated. Mild spondylosis. Impression: Patchy multifocal opacity in the left lower lung with a new effusion most suspicious for pneumonia. Follow-up CT in 3 months recommended, or sooner if per oncology. This noncontrast examination can not assess for pulmonary embolism. Please note that all CT scans at this facility use dose modulation, iterative reconstruction, and/or weight-based dosing when appropriate to reduce radiation dose to as low as reasonably achievable. Dictated by Kong Cotton MD @ 07/26/2025 8:46:04 PM (Electronically Signed)
[2025-07-26 20:14] LABS: Procalcitonin* 0.21 ng/mL (<0.50)
[2025-07-26] MEDS: cefTRIAXone 1 GM in 0.9 % SODIUM CHLORIDE Mini-bag 100 ML IVPB (21:13)
[2025-07-26] MEDS: DOXYCYCLINE HYCLATE 100 MG PO (21:24)
[2025-07-27 03:30] VITALS: BP 136/85; PULSE 97; RESP 16; TEMP 36.9; O2SAT 94
[2025-07-27 06:35] LABS: HCO3 VBG 23 mmol/L (21-28); PCO2 VBG 32 mmHG (40-50); PO2 VBG 66.4 mmHG (25-47); pH VBG 7.469 (7.32-7.43)
[2025-07-27 06:38] LABS: Hematocrit* 26.4 % (33.0-51.0); Hemoglobin* 8.5 gm/dL (12.0-16.0); Immature Granulocytes Abs Auto 0.30 K/uL (0.00-0.30); Immature Granulocytes Pct Auto 2.0 %; Mean Corpuscular HGB Conc 32 gm/dL (32-36); Mean Corpuscular Hemoglobin 18 pg (26-34); Mean Corpuscular Volume 56 fL (80-100); RDW Coefficient of Variation % 14.7 % (11.5-15.5); Red Blood Count* 4.75 m/uL (4.00-5.20); White Blood Count* 14.93 K/uL (4.50-11.00)
[2025-07-27 06:41] LABS: Lymphocytes Absolute Auto 2.80 K/uL (0.90-2.90); Slide Review Reflex No
[2025-07-27 07:00] VITALS: BP 140/93; PULSE 97; RESP 18; TEMP 36.3; O2SAT 97
--- NOTE | 2025-07-27 07:29 | PC.NURSE ---
Pt pleasant, alert and oriented.?Pt seemingly anxious and struggles to find words at times. at bedside and is main support person. Pt on heparin drip throughout shift, see mar. Lung sounds crackled in bases and wheezy in upper lobes, no cough noted. IVs patent. Left arm restricted. Left arm swollen and warm to touch. Pt in bed, appears to be resting, call light within reach.?
[2025-07-27 07:41] LABS: Albumin* 2.9 g/dL (3.3-5.0); Chloride* 101 mmol/L (96-114); Potassium* 3.9 mmol/L (3.6-5.1); Sodium* 132 mmol/L (135-149)
[2025-07-27 07:43] LABS: Blood Urea Nitrogen* 11 mg/dL (7-30); Creatinine* 0.6 mg/dL (0.5-1.5); Est. Creatinine Clearance* 49.80; Estimated Glomerular Filt Rate 99 ml/min
[2025-07-27 07:44] LABS: Alanine Aminotransferase* 21 U/L (4-35); Alkaline Phosphatase* 130 U/L (40-150); Anion Gap 8 mEq/L (7-15); Aspartate Amino Transferase* 39 U/L (12-35); Bilirubin Direct* 0.3 mg/dL (0.0-0.5); Bilirubin Total* 0.3 mg/dL (0.1-1.5); Calcium* 8.5 mg/dL (8.4-10.6); Carbon Dioxide* 23 mmol/L (20-32); Glucose* 133 mg/dL (60-115); Total Protein* 6.0 g/dL (6.0-8.3)
[2025-07-27 07:57] LABS: NT Pro B Type NatriureticPept* 657 pg/mL (See Note)
[2025-07-27] MEDS: SODIUM CHLORIDE 0.9 % (FLUSH) 10 ML SYRINGE 5 ML IVF (08:41)
[2025-07-27] MEDS: DOXYCYCLINE HYCLATE 100 MG PO (08:41)
[2025-07-27 08:57] LABS: INR 1.24 (0.91-1.10); Prothrombin Time 16.5 Seconds
[2025-07-27 11:00] VITALS: BP 151/91; PULSE 106; RESP 20; O2SAT 98
--- NOTE | 2025-07-27 11:49 | REH.PT ---
PT/OT orders received. Patient very fatigued and somewhat agitated this morning due to just not sleeping well. very active and engaged--providing a lot of assistance while in the room, but she has been walking back and forth to bathroom with him. Pt and spouse requesting PT/OT hold for today but will attempt again tomorrow.
--- NOTE | 2025-07-27 11:57 | PC.NURSE ---
Pt is doing well. VSS. Denies pain. Pt is SOB with activity and lying flat. Pt reports feeling very anxious. Left arm continues to be edematous. Pt's requested to measure circumference of the arm at the elbow line, which measured 33cm. Pt's is at bedside and assisting patient with ambulation and cares. APTT was 76 at 1030, no dose/rate change to heparin drip made, this was verified with second RN. Next APTT draw is ordered for 1630.
--- NOTE | 2025-07-27 12:15 | REH.OT ---
OT: Order received and patient tearful, family requesting to allow patient to rest. Patient to trial elevation and hand pumps initially with patient starting heparin before initiation of compression. MD aware. Patient has been seen by OP OT in [place] as recently as 07/11 and recommending follow up with OP OT with edema concerns.
[2025-07-27 14:34] VITALS: BP 129/81; PULSE 100; RESP 20; TEMP 36.7; O2SAT 96
[2025-07-27 15:00] VITALS: PULSE 104
--- NOTE | 2025-07-27 15:27 | PM.DS1 ---
DS: Providers Provider Date Seen: 07/27/25 Date of admission: 07/26/25 16:55 Primary care physician: Not a Local Provider Admitting Clinician: Nita Mandel MD Attending Physician on discharge: Nita Mandel MD Date of Discharge: 07/27/25 DS: Diagnosis Discharge Diagnosis (1) Deep venous thrombosis of left upper extremity: Status: Acute Problem details: -Acute in the last 48 hours since leaving ER in [place], no previous VTE hx. On Heparin gtt protocol. -Extensive left upper extremity deep venous thrombosis, with partial/nonocclusive thrombus in the left internal jugular vein. -ED discussed with vascular; instructed on heparin for 24 hours --> Eliquis -also recommended send out labs prior to initiating Eliquis. Given lengthy turnaround time for labs in this non [facility] facility; reconsulted vascular surgery on 07/27 to discuss alternative plans -plan on discharge 07/27: Discharge on 1 mg/kg Lovenox BID. Have the following labs drawn at a [facility] facility as an outpatient; results to be sent to vascular surgery to interpret prior to initiating Eliquis: DRVVT, anti-phospholipid antibody IgG and IgM, and B2 glycoprotein antibody IgG and IgM (2) Left lower lobe pneumonia: Status: Acute Problem details: -seen in [place] on 07/24 started on doxy/cefdinir (CT abd/pelvis showed developing LLL pna and trace pleural effusion) -started Rocephin at admission and continued doxy -nebs -imaging on admission showed a multifocal opacity in the LLL with a new effusion. -remained stable on RA; will discharge home on previous Doxy/Cefdinir and complete course (3) Lung cancer: Status: Acute Problem details: -New DVT in the left UE. New hypodense mass in liver, new soft tissue mass on the mid back. -History of 3 separate primaries? RUL, EWELINA, RLL. medical records not available. Right UL included chest wall reconstruction with mesh and rib removal -Currently followed by Skyler Hernandez (here in [place]) (4) Chronic anxiety: Status: Acute Problem details: xanax prn (5) Hypodense mass of right lobe of liver: Status: Acute Problem details: New hypodensity in the right hepatic lobe by CT on 07/24/25 (6) History of breast cancer: Status: Acute Problem details: 2014. Microinvasive ductal carcinoma stage 1. DS: Summary Hospital Course Hospital Course: Lena Antony was admitted to the hospital with within it acute left upper extremity DVT. She was treated with 24 hours of heparin; [facility] vascular surgery had recommended transitioning to Eliquis after heparin, but had wanted labs drawn prior to ensure that she did not have any atypical antibodies that would preclude the use of Eliquis. Unfortunately, our hospital was unable to obtain these labs in a reasonable time frame; vascular surgery was re-consulted prior to discharge to discuss alternative options. Ultimately, it was decided to send patient home on 1 mg/kg BID Lovenox injections and have labs drawn at a [facility] facility early next week. Results to be sent directly to [facility]'s vascular surgery Department and f/u will be scheduled with their team to determine futher anticoagulation plans. Multiple comorbidities as noted above, remained stable during stay. She was also recently diagnosed with a community acquired pneumonia and will continue antibiotics upon discharge; no hypoxia during stay. Time Spent with Patient Time attestation: Total time spent providing and/or coordinating discharge services: Time spent: Greater than 30 minutes Specific discharge activities: Medication management, lab follow-up, collaboration with [facility] vascular surgery team Exam Narrative: Exam Narrative: GEN: Alert and oriented HEENT: EOMIs bilaterally, no scleral icterus CV: RRR, No concerning murmurs R: LCTA bilaterally Ext: Edema and erythema of left upper extremity noted, + peripheral pulses and normal sensation distally Skin: No other concerning skin lesions or rashes on exposed skin Neuro: Nonfocal Psych: Tearful as she misses her dog, hoping for discharge today, otherwise appropriate Const: Vital Signs, click to edit/add: Vital Signs - 24 hr 07/26/25 17:32 07/26/25 17:32 07/26/25 17:32 Temperature 98.0 F Pulse Rate Pulse Rate [Pulse Oximeter] 114 H Respiratory Rate 20 20 Blood Pressure [Ri ght Arm] 140/91 H Pulse Oximetry 97 97 97 Oxygen Delivery Me thod Room Air Room Air 07/26/25 17:45 07/26/25 17:45 07/26/25 19:36 Temperature 98.0 F 98.2 F Pulse Rate Pulse Rate [Pulse Oximeter] 114 H 97 Respiratory Rate 20 20 20 Blood Pressure [Ri ght Arm] 140/91 H 133/75 Pulse Oximetry 97 97 100 Oxygen Delivery Me thod Room Air Room Air Room Air 07/26/25 23:00 07/26/25 23:00 07/26/25 23:17 Temperature 98.4 F Pulse Rate 109 H Pulse Rate [Pulse Oximeter] 97 108 H Respiratory Rate 20 18 Blood Pressure [Ri ght Arm] 135/83 Pulse Oximetry 96 Oxygen Delivery Me thod Room Air 07/27/25 03:30 07/27/25 07:00 07/27/25 07:00 Temperature 98.5 F Pulse Rate 97 Pulse Rate [Pulse Oximeter] 97 Respiratory Rate 16 18 Blood Pressure [Ri ght Arm] 136/85 Pulse Oximetry 94 Oxygen Delivery Ri thod Room Air 07/27/25 07:00 07/27/25 11:00 07/27/25 14:34 Temperature 97.3 F L Pulse Rate Pulse Rate [Pulse Oximeter] 97 106 H 100 Respiratory Rate 18 20 20 Blood Pressure [Ri ght Arm] 140/93 H 151/91 H Pulse Oximetry 97 98 Oxygen Delivery Ri thod Room Air Room Air 07/27/25 14:34 Temperature 98.0 F Pulse Rate Pulse Rate [Pulse Oximeter] 100 Respiratory Rate 20 Blood Pressure [Ri ght Arm] 129/81 Pulse Oximetry 96 Oxygen Delivery Me thod Room Air DS: Data Data Completed and Pending Labs on day of discharge: Labs from last 24 hours 07/27/25 07/27/25 07/27/25 09:20 06:07 05:30 WBC 14.93 H RBC 4.75 Hgb 8.5 L Hct 26.4 L MCV 56 L MCH 18 L MCHC 32 RDW Coeff of Nahed 14.7 Plt Count 386 Neut % (Auto) 66.1 Lymph % (Auto) 18.6 L [place] % (Auto) 8.0 Eos % (Auto) 4.8 Baso % (Auto) 0.5 Neut # (Auto) 9.90 H Lymph # (Auto) 2.80 [place] # (Auto) 1.20 H Eos # (Auto) 0.70 H Baso # (Auto) 0.10 Abs Immat Gran (auto) 0.30 Imm/Tot Granulo (auto) 2.0 Absolute Retic Percent Retic Immature Retic Fraction Retic Hgb Equivalent PT INR 1.24 H APTT 76 H VBG pH 7.469 H VBG pCO2 32 L VBG pO2 66.4 H VBG HCO3 23 Sodium 132 L Potassium 3.9 Chloride 101 Carbon Dioxide 23 Anion Gap 8 BUN 11 Creatinine 0.6 Estimated Creat Clear 49.80 Estimated GFR 99 Glucose 133 H Calcium 8.5 Phosphorus 3.7 Iron TIBC % Saturation Ferritin Total Bilirubin 0.3 Direct Bilirubin 0.3 AST 39 H ALT 21 Alkaline Phosphatase 130 C-Reactive Protein 13.1 H NT-Pro-B Natriuret Pep 657 H Total Protein 6.0 Albumin 2.9 L Procalcitonin TSH Lab Acknowledgement 07/26/25 07/26/25 07/26/25 23:25 20:13 19:43 WBC RBC Hgb Hct MCV MCH MCHC RDW Coeff of Nahed Plt Count Neut % (Auto) Lymph % (Auto) [place] % (Auto) Eos % (Auto) Baso % (Auto) Neut # (Auto) Lymph # (Auto) [place] # (Auto) Eos # (Auto) Baso # (Auto) Abs Immat Gran (auto) Imm/Tot Granulo (auto) Absolute Retic Percent Retic Immature Retic Fraction Retic Hgb Equivalent PT Cancelled INR Cancelled APTT 125 H* VBG pH VBG pCO2 VBG pO2 VBG HCO3 Sodium Potassium Chloride Carbon Dioxide Anion Gap BUN Creatinine Estimated Creat Clear Estimated GFR Glucose Calcium Phosphorus Iron TIBC % Saturation Ferritin Total Bilirubin Direct Bilirubin AST ALT Alkaline Phosphatase C-Reactive Protein NT-Pro-B Natriuret Pep Total Protein Albumin Procalcitonin TSH Lab Acknowledgement Test Added Test Added 07/26/25 07/26/25 18:02 16:18 WBC 13.09 H RBC 4.93 Hgb 8.8 L Hct 27.5 L MCV 56 L MCH 18 L MCHC 32 RDW Coeff of Nahed 14.8 Plt Count 337 Neut % (Auto) 70.2 Lymph % (Auto) 15.4 L [place] % (Auto) 7.6 Eos % (Auto) 4.4 Baso % (Auto) 0.4 Neut # (Auto) 9.20 H Lymph # (Auto) 2.00 [place] # (Auto) 1.00 H Eos # (Auto) 0.60 H Baso # (Auto) 0.10 Abs Immat Gran (auto) 0.30 Imm/Tot Granulo (auto) 2.0 Absolute Retic 0.04 Percent Retic 0.7 Immature Retic Fraction 13.9 Retic Hgb Equivalent 15.3 L PT INR 1.31 H APTT 36 H VBG pH VBG pCO2 VBG pO2 VBG HCO3 Sodium 133 L Potassium 4.1 Chloride 100 Carbon Dioxide 27 Anion Gap 6 L BUN 15 Creatinine 0.6 Estimated Creat Clear 49.80 Estimated GFR 99 Glucose 117 H Calcium 8.6 Phosphorus Iron 20 L TIBC 215 L % Saturation 9 L Ferritin 905.0 H Total Bilirubin 0.3 Direct Bilirubin 0.3 AST 40 H ALT 21 Alkaline Phosphatase 128 C-Reactive Protein 15.7 H NT-Pro-B Natriuret Pep Total Protein 6.4 Albumin 3.0 L Procalcitonin 0.21 TSH 1.940 Lab Acknowledgement Test Added Discharge Plan Discharge Disposition: Home, Self-Care Date of Admission: 07/26/25 16:55 Attending Provider on Discharge: Nita Mandel Primary Care Provider: Provider,Not a Local Condition: Improved Anticipated Discharge Date/Time: 07/27/25 18:00 Discharge Medications: New enoxaparin [Lovenox] 60 mg/0.6 mL syringe 60 mg subcut Q12H 14 Days Qty: 16.8 2RF Continued alprazolam 0.25 mg tablet 0.125 mg PO HS Rx Instructions: plus additional 1/2 tab as needed on rare occasions albuterol sulfate [Ventolin HFA] 90 mcg/actuation HFA aerosol inhaler 2 puff inhalation Q4-6H PRN (Reason: dyspnea) fexofenadine-pseudoephedrine [Allergy Relief-D(fexofenadine)] 60-120 mg tablet extended release 12 hr 1 tab PO BID B-complex with vitamin C Tablet 1 tab PO DAILY Caltrate 600 plus D 600 mg-20 mcg (800 unit) tablet,chewable 2 tab PO DAILY doxycycline monohydrate 100 mg capsule 100 mg PO BID cefdinir 250 mg/5 mL suspension for reconstitution 300 mg PO BID meclizine 12.5 mg tablet 12.5 mg PO Q6H PRN Rx Instructions: DIZZINESS clarithromycin 250 mg tablet 500 mg PO DIRECTED PRN Rx Instructions: TAKE 500 MG PRIOR TO DENTAL APPOINTMENTS Discharge Orders: Discharge Order (Routine); Ordered 07/27/25 Ordered By: Nita Mandel Patient Education: Enoxaparin (By injection), Deep Vein Thrombosis (DC) Additional Instructions: You have a blood clot in your left arm, you will go home on LOVENOX injections twice/day for this. Hopefully you can transition to oral anticoagulation pending lab results at [facility]. Your Lovenox was sent to the pharmacy, 1st injection is tomorrow morning, you will get an injection here before you leave tonight. You need the following labs drawn: DRVVT, anti phospholipid antibody IgG and IgM, and B2 glycoprotein antibody IgG and IgM (at [facility]) for dx code I82.622 We will send them to Dr. Noland at [facility]. If you have any trouble getting these tests ordered, you come bring this paper to any other [facility] facility for assistance. Continue the antibiotics that you were given in [place] for pneumonia. Activity Level: No strenuous activity Discharge Diet: Regular Follow Up Appointments: Bernice Banerjee MD [Referring, Vascular Surgery] Referral Note: Needs an appt at the [facility] in 2-3 weeks. Our ER physician spoke with Dr. Noland, but it can be any provider in that clinic. Please call [phone] to set up an appointment. Provider,Not a Local [Primary Care Provider, Family Practice] Referral Note: Forms: Patient Belongings, [facility] Info Instructions
[2025-07-27] MEDS: ENOXAPARIN 60 MG/0.6 ML INJ SUBCUT (18:50)
--- NOTE | 2025-07-27 18:59 | PC.NURSE ---
Pt disoriented and anxious, pt reposition and comforted to alleviate anxiousness. Spouse and pt given discharge education both verbally and written. Lovenox teaching done by RN via demonstration. IV removed cath intact, pt left facility at 1901 via wheelchair accompanied by and RN
--- NOTE | 2025-07-27 19:34 | PC.NURSE ---
Heparin restarted at 0315 at a rate of 900 units/hr by Dahlia AVILES, verified with Kaylie AVILES.
--- NOTE | 2025-07-28 08:12 | REH.OT ---
OT: Patient was on schedule for 07/28/25, however discharged home with spouse evening of 07/27/25.
== END 2025-07-27 19:03 | disposition home or self-care (01) | DRG 299 ==
LOC: ED 16:53 → MEDSURG 16:55
PROVIDERS: Admitting Provider Family Medicine; Emergency Provider Family Medicine; Visit Provider Family Medicine
DX: I82.C12 Acute embolism and thrombosis of left internal jugular vein (principal); J18.9 Pneumonia, unspecified organism; C34.31 Malignant neoplasm of lower lobe, right bronchus or lung; I82.612 Acute embolism and thrombosis of superficial veins of left upper extremity; F41.9 Anxiety disorder, unspecified; D56.3 Thalassemia minor; R22.2 Localized swelling, mass and lump, trunk; R16.0 Hepatomegaly, not elsewhere classified; Z85.118 Personal history of other malignant neoplasm of bronchus and lung; D63.8 Anemia in other chronic diseases classified elsewhere; Z85.3 Personal history of malignant neoplasm of breast
CPT/HCPCS: 36415; 71250; 80048; 80069; 80076; 82728; 82803; 83540; 83550; 83880; 84145; 84443; 85025; 85045; 85610; 85730; 86140; 93005; 93971; 99285; A9270; J0696; J1644; J1650; J7030

== ENCOUNTER 2025-07-31 08:47 | Outpatient (CLI) | payer MEDICARE, BC, SELFPAY ==
--- NOTE | 2025-07-31 09:00 | CRLHL7_ITS ---
For Patients: As a result of the Century Cures Act, medical imaging exams and procedure reports are released immediately into your electronic medical record. You may view this report before your referring provider. If you have questions, please contact your health care provider. INDICATION: Malignant neoplasm of lung upper lobe or bronchus right. TECHNIQUE: CT chest without contrast. COMPARISON: Chest CT 07/26/2025. FINDINGS: Lungs, pleura, and airways: Unchanged left lower lobe nodular consolidations suspicious for pneumonia. Stable posttreatment changes to the right upper lung. Stable 0.5 cm right lower lobe nodule (series 3, image 62). Slightly increased but still small left pleural effusion. No pleural thickening or pneumothorax. Airways are clear. No endobronchial lesion. No bronchiectasis. Heart and vasculature: Heart size is normal. Unchanged trace pericardial effusion. Thoracic aorta and pulmonary arteries are normal in caliber. Three vessel aortic arch. Mild coronary atherosclerosis. Lymph nodes/mediastinum: 1.7 cm left hilar prominence (series 2, image 45) more conspicuous than seen previously, cannot rule out hilar lymphadenopathy but limited assessment without intravenous contrast. No mediastinal or axillary adenopathy. Visualized portions of the thyroid are within normal limits. Soft tissues: Suspect small sebaceous cyst to the right of midline overlying the lower dorsal thoracic soft tissues (series 2, image 74 and laterally dorsal left thorax (image 74). No left breast biopsy clips and calcifications.. Upper abdomen: 1.5 cm left adrenal nodule was not present on 02/21/2025 CT (series 2, image 88) and is suspicious for metastatic disease. Simple left renal cyst. Otherwise normal noncontrast appearance of the upper abdomen.. Bones: New 2.4 cm lytic lesion in the right lateral 6th rib with extraosseous soft tissue component that extends to the pleural space (series 2, image 38). Postsurgical changes of the right chest wall. No acute fracture.. IMPRESSION: 1. Unchanged left lower lobe nodular consolidation suspicious for pneumonia. Slightly increased but still small left pleural effusion. Recommend three-month follow-up chest CT. 2. Left hilar prominence more conspicuous than seen previously, cannot rule out hilar lymphadenopathy or hilar mass. Follow-up chest CT should be with intravenous contrast to allow better evaluation of the hilar structures. 3. A 1.5 cm left adrenal nodule and a 2.4 cm lytic lesion in the right lateral 6th rib. Findings are highly suspicious for metastatic disease. Consider PET-CT. Please note that all CT scans at this facility use dose modulation, iterative reconstruction, and/or weight-based dosing when appropriate to reduce radiation dose to as low as reasonably achievable. Dictated by Guy Liang MD @ 08/01/2025 11:52:15 AM (Electronically Signed)
== END 2025-07-31 08:48 | disposition home or self-care (01) ==
LOC: CT 08:47
PROVIDERS: PCP Internal Medicine; Visit Provider Radiology Radiation Oncology
DX: C34.11 Malignant neoplasm of upper lobe, right bronchus or lung (principal); E27.8 Other specified disorders of adrenal gland; M89.9 Disorder of bone, unspecified
CPT/HCPCS: 71250